=== PATIENT | male | born 1975 ===

== ENCOUNTER 2021-05-05 03:40 | Emergency (ER) | payer BC ==
[2021-05-05] MEDS ORDERED: Ondansetron 4 MG/2 ML SDV IVPUSH ONE (04:11)
[2021-05-05] MEDS ORDERED: fentaNYL 100 MCG/2 ML SDV IVPUSH ONE (04:11)
[2021-05-05] MEDS ORDERED: Sodium Chloride 0.9% 10 ML Syringe FLUSH PRN (04:12)
[2021-05-05] MEDS ORDERED: Sodium Chloride 0.9% 1,000 ML IV ONE (04:12)
--- NOTE | 2021-05-05 04:17 | EDM.PDOC ---
ED HPI GENERAL MEDICAL PROBLEM - General Chief Complaint: Abdominal Pain Stated Complaint: ABDOMINAL PAIN Time Seen by Provider: 05/05/21 04:11 Source of Information: Reports: Patient - History of Present Illness INITIAL COMMENTS - FREE TEXT/NARRATIVE: Regis is a 45 y/o old male who presents to the ER with abdominal pain. He reports the pain started yesterday afternoon and is getting worse. He reports it is in the epigastric region and "constant". No fever, but he is nauseated Had a normal BM yesterday. Abdominal Pain Score (Numeric/FACES): 10 - Related Data Allergies Allergy/AdvReac Type Severity Reaction Status Date / Time aspirin Allergy Anaphylactic Verified 05/05/21 03:47 Shock Home Meds: Home Meds . [No Known Home Meds] 05/05/21 [History] Past Medical History Gastrointestinal History: Reports: Diverticulosis, Other (See Below) (Bowel Surgery 7 years ago) Social & Family History - Tobacco Use Tobacco Use Status *Q: Never Tobacco User Second Hand Smoke Exposure: Yes - Caffeine Use Caffeine Use: Reports: Coffee - Recreational Drug Use Recreational Drug Use: No Review of Systems - Review of Systems Review Of Systems: See Below Constitutional: Reports: No Symptoms Eyes: Reports: No Symptoms Ears: Reports: No Symptoms Nose: Reports: No Symptoms Mouth/Throat: Reports: No Symptoms Respiratory: Reports: No Symptoms Cardiovascular: Reports: No Symptoms GI/Abdominal: Reports: Abdominal Pain, Nausea Genitourinary: Reports: No Symptoms Musculoskeletal: Reports: No Symptoms Skin: Reports: No Symptoms Neurological: Reports: No Symptoms Psychiatric: Reports: No Symptoms ED EXAM, GENERAL - Physical Exam Exam: See Below General Appearance: Alert, WD/WN (Adult male, sitting on edge of bed in a position fo comfort due to the pain) Ears: Hearing Grossly Normal Nose: Normal Inspection Throat/Mouth: Normal Inspection, Normal Voice Head: Atraumatic, Normocephalic Neck: Normal Inspection Respiratory/Chest: No Respiratory Distress, Lungs Clear, Chest Non-Tender Cardiovascular: Normal Peripheral Pulses, Regular Rate, Rhythm, No Murmur GI/Abdominal: Normal Bowel Sounds, Soft, Tender (diffusely, no masses) (Male) Exam: Deferred Rectal (Males) Exam: Deferred Extremities: Normal Inspection, Normal Range of Motion Neurological: Alert, Oriented, CN II-XII Intact, No Motor/Sensory Deficits Psychiatric: Normal Affect Skin Exam: Warm, Dry, Intact, Normal Color Lymphatic: No Adenopathy Course - Vital Signs Text/Narrative:: The patient was seen by the [facility]. Labs ordered. He was given a liter of NS, Fentanyl 100mcg IVP, and Zofran 4gm IVP. 0430 Rates pain now 5/10 and able to relax a bit. Labs pending yet. GI cocktail given. 0520 Pain returning. GI cocktail did not help much. [facility] contacted and case presented. Pain persisting and patient needs CT imaging. Dr Walker accepted the patient to the ER. Dilaudid 1mg IVP given for pain that is returning. Patient remained stable until departing with his via POV for the [facility] ER. Last Recorded V/S: Last Vital Signs Temp 36.8 C 05/05/21 03:40 Pulse 87 05/05/21 03:40 Resp 20 05/05/21 03:40 BP 146/81 H 05/05/21 03:40 Pulse Ox 96 05/05/21 03:40 - Orders/Labs/Meds Orders: Active Orders 24 hr Category Date Time Status Sodium Chloride 0.9% [Saline Flush] Med 05/05/21 04:12 Ordered 10 ml FLUSH ASDIRECTED PRN Saline Lock Insert [OM.PC] Stat Oth 05/05/21 04:11 Ordered Medication Orders Sodium Chloride (Sodium Chloride 0.9% 10 Ml Syringe) 10 ml FLUSH ASDIRECTED PRN PRN Reason: Keep Vein Open Labs: Laboratory Tests 05/05/21 05/05/21 05/05/21 Range/Units 04:00 04:10 04:10 WBC 11.6 H (4.0-10.2) K/uL RBC 5.51 H (4.33-5.41) M/uL Hgb 17.6 H (13.1-16.8) g/dL Hct 49.5 H (39.0-49.0) % MCV 89.8 (84.0-98.0) fL MCH 31.9 (28.2-33.3) pg MCHC 35.6 (31.7-36.0) g/dL RDW 12.8 (11.2-14.1) % Plt Count 303 (150-350) K/uL MPV 8.20 (7.00-11.50) fL Sodium 141 (136-145) mmol/L Potassium 4.2 (3.5-5.1) mmol/L Chloride 102 (98-107) mmol/L Carbon Dioxide 25.9 (21.0-32.0) mmol/L BUN 16 (7-18) mg/dL Creatinine 0.90 (0.51-1.17) mg/dL Est Cr Clr Drug Dosing 88.26 mL/min Estimated GFR (MDRD) > 60 mL/min Glucose 115 H (70-99) mg/dL Calcium 9.8 (8.5-10.1) mg/dL Total Bilirubin 0.7 (0.2-1.0) mg/dL AST 29 (15-37) U/L ALT 56 (12-78) U/L Alkaline Phosphatase 75 (46-116) IU/L Total Protein 8.5 H (6.4-8.2) g/dL Albumin 4.5 (3.4-5.0) g/dL Specimen Type Urinvoid Urine Color Yellow Urine Appearance Clear Urine pH 8.5 (5.0-9.0) Ur Specific Tracy 1.020 (1.005-1.030) Urine Protein 30 H (NEGATIVE) mg/dL Urine Glucose (UA) Negative (NEGATIVE) mg/dL Urine Ketones Negative (NEGATIVE) mg/dL Urine Occult Blood Negative (NEGATIVE) Urine Nitrite Negative (NEGATIVE) Urine Bilirubin Negative (NEGATIVE) Urine Urobilinogen 1.0 (0.2-1.0) E.U./dL Ur Leukocyte Esterase Negative (NEGATIVE) Urine RBC 0-5 /HPF Urine WBC 0-5 /HPF Ur Epithelial Cells Rare /LPF Urine Bacteria Rare (NONE TO FEW) /HPF Meds: Medications Generic Name Dose Route Start Last Admin Trade Name Freq PRN Reason Stop Dose Admin Sodium Chloride 10 ml 05/05/21 04:12 Sodium Chloride 0.9% 10 Ml Syringe FLUSH ASDIRECTED PRN Keep Vein Open Discontinued Medications Generic Name Dose Route Start Last Admin Trade Name Freq PRN Reason Stop Dose Admin Al Hydroxide/Mg Hydroxide 30 ml 05/05/21 04:45 05/05/21 04:46 Gi Cocktail Oral Solution 30 Ml PO 05/05/21 04:46 30 ml ONETIME ONE Administration Fentanyl 100 mcg 05/05/21 04:11 05/05/21 04:17 Fentanyl 100 Mcg/2 Ml Sdv IVPUSH 05/05/21 04:12 100 mcg ONETIME ONE Administration Hydromorphone HCl 1 mg 05/05/21 05:28 Hydromorphone 1 Mg/Ml Syringe IVPUSH 05/05/21 05:29 ONETIME ONE Sodium Chloride 1,000 mls @ 999 mls/hr 05/05/21 04:12 05/05/21 04:17 Normal Saline IV 05/05/21 05:12 999 mls/hr .BOLUS ONE Administration Ondansetron HCl 4 mg 05/05/21 04:11 05/05/21 04:17 Ondansetron 4 Mg/2 Ml Sdv IVPUSH 05/05/21 04:12 4 mg ONETIME ONE Administration Departure - Departure Time of Disposition: 05:30 Disposition: DC/Tfer to Acute Hospital 02 Condition: Good Clinical Impression: Abdominal pain Qualifiers: Abdominal location: generalized Qualified Code(s): R10.84 - Generalized abdominal pain - Discharge Information *PRESCRIPTION DRUG MONITORING PROGRAM REVIEWED*: Not Applicable *COPY OF PRESCRIPTION DRUG MONITORING REPORT IN PATIENT MARÍA: Not Applicable Forms: ED Department Discharge, Interfacility Transfer EMTALA Additional Instructions: -Transfer to [facility] to ER for further diagnostic imaging, Dr Walker accepting in the ER Sepsis Event Note (ED) - Evaluation Sepsis Screening Result: No Definite Risk - Focused Exam Vital Signs: Vital Signs Temp Pulse Resp BP Pulse Ox 05/05/21 03:40 36.8 C 87 20 146/81 H 96 - My Orders Last 24 Hours: My Active Orders 05/05/21 04:11 Saline Lock Insert [OM.PC] Stat 05/05/21 04:12 Sodium Chloride 0.9% [Saline Flush] 10 ml FLUSH ASDIRECTED PRN - Assessment/Plan Last 24 Hours: My Active Orders 05/05/21 04:11 Saline Lock Insert [OM.PC] Stat 05/05/21 04:12 Sodium Chloride 0.9% [Saline Flush] 10 ml FLUSH ASDIRECTED PRN Assessment:: 1)Abdominal Pain Plan: As above
[2021-05-05 04:25] LABS: CHLORIDE,CL 102 mmol/L (98-107); SODIUM,NA 141 mmol/L (136-145)
[2021-05-05] MEDS ORDERED: GI Cocktail Oral Solution 30 ML PO ONE (04:45)
[2021-05-05] MEDS ORDERED: HYDROmorphone 1 MG/ML Syringe IVPUSH ONE (05:28)
== END 2021-05-05 05:45 ==
LOC: LL.ED 03:40
DX: R10.84 Generalized abdominal pain (principal); Z88.8 Allergy status to other drugs, medicaments and biological substances
CPT/HCPCS: 36415; 80053; 81001; 85027; 96374; 96375; 99284; 99284-25; A9270-GY; J1170; J2405; J3010; J7030